=== PATIENT | female | born 1995 | race Caucasian/White ===

== ENCOUNTER → 2017-08-04 | Outpatient (CLI) | payer OTHER ==
--- NOTE | 2017-08-04 20:13 | DIAGNOSTIC IMAGING REPORT ---
L LOWER EXT JOINT WITHOUT CLINICAL HISTORY: 22 years-old Female presenting with LT KNEE PAIN, PATELLAR INSTABILITY. TECHNIQUE: Multisequence, multiplanar MR imaging of the left knee was performed without the use of intravenous contrast. IV contrast: None. COMPARISON: . Radiographs from 04/27/2009. FINDINGS: Localizer images: Unremarkable. No bony edema. Focal fissuring and over 50% thickness defect in the median prominence of the patellar cartilage, which is impacted on the superior lateral trochlear cartilage. Significant lateral dislocation of the patella. This is impacted on the lateral trochlea. The medial patellar retinaculum may have a partial tear at the patellar origin (series 4 image 15). Quadriceps and patellar tendons intact. Medial and lateral menisci intact. Anterior and posterior cruciate ligaments intact. Medial collateral ligament intact. Lateral collateral ligament complex including the biceps femoris tendon, fibular collateral ligament, popliteus tendon, and iliotibial band intact. Trace knee joint effusion. No popliteal cyst. Normal muscle bulk and muscle signal intensity. IMPRESSION: 1. Lateral patellar dislocation with impaction on the lateral trochlea. This results in over 50% thickness articular cartilage defect in the median prominence of the patellar cartilage. Partial disruption of the medial patellar retinaculum suggested. Electronically signed by: Frankie Muse M.D. 08/04/2017 8:11 PM Dictated Date/Time: 08/04/2017 8:05 PM
== END | disposition home or self-care (01) ==
LOC: C.MRI 18:57
PROVIDERS: ATTEND Orthopaedic Surgery
DX: M25.361 Other instability, right knee (principal); M25.362 Other instability, left knee